=== PATIENT | female | born 1980 | race Caucasian/White ===

== ENCOUNTER → 2019-02-27 09:57 | Outpatient (CLI) | payer OTHER, MEDICAID, SELFPAY ==
--- NOTE | 2019-02-27 | DI.MG.S_ITS ---
BILATERAL DIGITAL SCREENING MAMMOGRAM 3D/2D WITH CAD: 02/27/2019 CLINICAL: Routine screening. Baseline exam. No prior exams were available for comparison. The tissue of both breasts is heterogeneously dense. This may lower the sensitivity of mammography. Current study was also evaluated with a Computer Aided Detection (CAD) system. There are two areas of possible architectural distortion in the right breast posterior depth central to the nipple seen on the craniocaudal view only. This is best seen on RCC tomosynthesis image 27/55. IMPRESSION: INCOMPLETE: NEEDS ADDITIONAL IMAGING EVALUATION The two areas of possible architectural distortion in the right breast posterior depth central to the nipple are indeterminate. Additional views with possible ultrasound are recommended. This exam was interpreted at Station ID: [id number]. NOTE: For mammograms, a report in lay terms will be sent to the patient. Approximately 15% of breast malignancies will not be visualized mammographically. In the management of a palpable breast mass, a negative mammogram must not discourage biopsy of a clinically suspicious lesion. Electronically Signed By: Sly Cope M.D. ecl/:03/01/2019 12:02:00 letter sent: Additional Imaging Needed ACR BI-RADS Category 0: Incomplete 3340F
== END ==
DX: Z12.31 Encounter for screening mammogram for malignant neoplasm of breast (principal)
CPT/HCPCS: 77063; 77067

== ENCOUNTER → 2019-03-24 12:38 | Outpatient (CLI) | payer OTHER, MEDICAID, SELFPAY ==
--- NOTE | 2019-03-24 | DI.MG.S_ITS ---
UNILATERAL RIGHT DIGITAL DIAGNOSTIC MAMMOGRAM 3D/2D WITH ADDITIONAL VIEWS: 03/24/2019 CLINICAL: Additional evaluation requested from prior study. Comparison is made to exam dated: 02/27/2019 mammogram - [facility]. The tissue of right breast is heterogeneously dense. This may lower the sensitivity of mammography. The architectural distortion in the right breast posterior depth central to the nipple seen on the craniocaudal view only is not seen in additional views. No other significant masses or calcifications are seen in the breast. IMPRESSION: The architectural distortion in the right breast seen on the screening mammogram likely respresents superimposed fibroglandular tissue and is benign. There is no mammographic evidence of malignancy. A 1 year screening mammogram is recommended. This exam was interpreted at Station ID: [id number]. NOTE: For mammograms, a report in lay terms will be sent to the patient. Approximately 15% of breast malignancies will not be visualized mammographically. In the management of a palpable breast mass, a negative mammogram must not discourage biopsy of a clinically suspicious lesion. Electronically Signed By: Jacqui kerns/:03/24/2019 13:05:25 letter sent: Normal Exam ACR BI-RADS Category 2: Benign Finding(s) 3342F
== END ==
DX: R92.8 Other abnormal and inconclusive findings on diagnostic imaging of breast (principal)
CPT/HCPCS: 77065; G0279

== ENCOUNTER → 2020-02-25 13:10 | Outpatient (CLI) | payer OTHER, MEDICAID, SELFPAY ==
[2020-02-25 13:42] LABS: Add Manual Diff / Slide Review NO; Basophils Absolute Auto 0 /uL (0-100); Basophils Percent Auto 0.4 % (0-2); Eosinophils Absolute Auto 0 /uL (0-450); Eosinophils Percent Auto 0.4 % (2-4); Hematocrit 37.5 % (36-46); Hemoglobin 12.9 g/dL (12.0-16.0); Lymphocytes Absolute Auto 1800 /uL (1100-4500); Lymphocytes Percent Auto 16.9 % (25-40); Mean Corpuscular HGB Conc 34.4 % (30-36); Mean Corpuscular Hemoglobin 31.5 PG (26-34); Mean Corpuscular Volume 91.4 fL (80-100); Monocytes Absolute Auto 800 /uL (0-900); Monocytes Percent Auto 7.3 % (3-14); Neutrophils Absolute Auto 8100 /uL (1500-7000); Platelet Count 332 X10^3/uL (150-400); Red Blood Cell Count 4.11 X10^6/uL (4.0-5.2); Red Cell Distribution Width 12.6 % (11.6-14.8); White Blood Cell Count 10.8 X10^3/uL (4.5-11.0)
[2020-02-25 13:49] LABS: Appearance Urine UA CLEAR; Bilirubin Urine UA NEGATIVE (NEGATIVE); Color Urine UA YELLOW; Glucose Urine UA NEGATIVE (Negative); Ketones Urine UA NEGATIVE (NEGATIVE); Leukocyte Esterase Urine UA NEGATIVE (NEGATIVE); Nitrite Urine UA NEGATIVE (Negative); Occult Blood Urine UA NEGATIVE (Negative); Protein Urine UA NEGATIVE (Negative); Urobilinogen Urine UA 0.2 E.U./dL (0.2)
[2020-02-25 15:17] LABS: Urine N gonorrhoeae NOT DETECTED
[2020-02-25 16:39] LABS: Urine Chlamydia NOT DETECTED
[2020-02-26 09:10] LABS: RPR Screen Non Reactive (Non Reactive); Varicella IgG Antibody 1372 index (Immune >165)
[2020-02-27 09:11] LABS: Hepatitis B Surface Antigen NEGATIVE s/c (NEGATIVE); Rubella Antibody IgG 73.9 IU/mL (>15)
== END ==
PROVIDERS: Referring Provider Specialist; Visit Provider Specialist
DX: Z34.01 Encounter for supervision of normal first pregnancy, first trimester (principal); Z11.3 Encounter for screening for infections with a predominantly sexual mode of transmission; Z3A.09 9 weeks gestation of pregnancy
CPT/HCPCS: 36415; 80055; 81003; 86787; 86850; 86900; 86901; 87086; 87491; 87591

== ENCOUNTER → 2020-03-24 10:52 | Outpatient (CLI) | payer OTHER, MEDICAID, SELFPAY | PROVIDERS: PCP Nurse Practitioner Family; Referring Provider Specialist; Visit Provider Specialist | DX: O09.521 Supervision of elderly multigravida, first trimester (principal); O09.819 Supervision of pregnancy resulting from assisted reproductive technology, unspecified trimester; Z36.0 Encounter for antenatal screening for chromosomal anomalies | CPT/HCPCS: 36415; 81420 ==

== ENCOUNTER → 2020-04-21 10:41 | Outpatient (CLI) | payer OTHER, MEDICAID, SELFPAY ==
[2020-04-21 13:36] LABS: Free T4, Direct Thyroxine 0.95 ng/dL (0.78-2.19)
[2020-04-21 13:50] LABS: Thyroid Stimulating Hormone 3.64 uIU/mL (0.47-4.68)
[2020-04-25 18:07] LABS: AFP Value 64.6 ng/mL (.); Gestational Age Ultrasound (.); Insulin Dep Diabetes No (.); OSBR Risk 1IN 1802 (.); Results Report (.); Test Results *Screen Negative* (.)
== END ==
PROVIDERS: PCP Nurse Practitioner Family; Referring Provider Specialist; Visit Provider Specialist
DX: O99.280 Endocrine, nutritional and metabolic diseases complicating pregnancy, unspecified trimester (principal); O09.529 Supervision of elderly multigravida, unspecified trimester; E03.9 Hypothyroidism, unspecified
CPT/HCPCS: 36415; 82105; 84439; 84443

== ENCOUNTER → 2020-05-19 07:52 | Outpatient (CLI) | payer OTHER, MEDICAID, SELFPAY ==
--- NOTE | 2020-05-19 07:54 | DI.US.S_ITS ---
PROCEDURE: US OB >= 14 WEEKS FETUS INDICATIONS: ANATOMY OUTSIDE/PRIOR DATING DATA: Last menstrual period (LMP): Given as 01/07/20. LMP-based estimated date of delivery (VJ): By IVF, 10/02/20. First dating scan (date and location): 05/19/20. Estimated date of delivery (VJ) from first dating scan: 09/25/20. TECHNIQUE: Real-time scanning was performed of the fetus, with image documentation and biometric measurements. COMPARISON: [facility], , OB >= 14 WEEKS FETUS, 03/24/2020, 10:19. FINDINGS: General: A single live intrauterine gestation is present. Presentation: Variable. Placenta: Placental position is posterior/fundal, without previa. Amniotic fluid index: 13.2 cm, normal range is 5-24 cm. heart rate: 125 beats per minute. Maternal cervical canal: 4.6 cm long. Normal lower limit is 2.5 cm. biometrics: Biparietal diameter: 5.1 cm equals 21 weeks 3 days Head circumference: 19.4 cm equals 21 weeks 5 days Abdominal circumference: 16.2 cm equals 21 weeks 2 days Femur length: 3.6 cm equals 21 weeks 5 days Estimated gestational age from initial scan: not applicable. Composite gestational age from present scan: 21 weeks 4 days Estimated weight and percentile: 429 g, 90 percentile Measurement variability for biometric dating: +/- 7 days from 14 weeks to 15 weeks 6 days gestation, +/- 10 days from 16 weeks to 21 weeks 6 days gestation, +/- 2 weeks from 22 weeks to 27 weeks 6 days gestation, +/- 3 weeks for 28 weeks gestation or later. weight reference: 4500 g or EFW >90/95% is considered macrosomia or large for gestational age. EFW <10% is small for gestational age. EFW 5% or less is considered intra-uterine growth restriction. Anatomic survey: Neuro: Ventricles are non-dilated at less than 10 mm. Cisterna magna is normal at 3-11 mm. Cerebellum is normal in size and morphology. Nuchal skin fold: Normal at less than 6 mm between 14-21 weeks gestational age. Face: Nose and lips, facial profile are normal. Spine: No evidence for spina bifida. Heart: 4-chambered heart is present, with normal ventricular outflow tracts. Diaphragm: Diaphragm is intact. Stomach: Left-sided stomach is present. Kidneys: No hydronephrosis. Normal is less than 5 mm in 2nd trimester, less than 7 mm in 3rd trimester. Cord: 3-vessel cord has orthotopic insertion. Bladder: Normal in size. Extremities: All 4 extremities identified. IMPRESSION: A single live intrauterine is seen. No anatomic abnormalities are identified. No significant discrepancy is found between the estimated gestational age based on these images and the estimated gestational age based upon the given date of the last menstrual period. Dictated by: Amando Walker M.D. on 05/19/2020 at 8:35 Approved by: Amando Walker M.D. on 05/19/2020 at 8:39
== END ==
PROVIDERS: PCP Nurse Practitioner Family; Referring Provider Specialist; Visit Provider Specialist
DX: Z34.82 Encounter for supervision of other normal pregnancy, second trimester (principal); Z3A.21 21 weeks gestation of pregnancy
CPT/HCPCS: 76811

== ENCOUNTER → 2020-09-06 08:23 | Outpatient (CLI) | payer OTHER, MEDICAID, SELFPAY ==
[2020-09-07 07:54] LABS: Strep Grp B PCR NEG for Grp B Strep
== END ==
PROVIDERS: PCP Obstetrics & Gynecology; Visit Provider Specialist
DX: Z34.83 Encounter for supervision of other normal pregnancy, third trimester (principal); Z3A.36 36 weeks gestation of pregnancy
CPT/HCPCS: 87653

== ENCOUNTER 2020-10-02 11:04 | Outpatient (CLI) | payer OTHER, MEDICAID, SELFPAY ==
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
== END 2020-10-02 11:10 | disposition home or self-care (01) ==
LOC: LABOR 11:52 → OB 10-03 16:50
PROVIDERS: PCP Obstetrics & Gynecology; Referring Provider Specialist; Visit Provider Specialist
DX: O48.0 Post-term pregnancy (principal); O09.513 Supervision of elderly primigravida, third trimester; Z3A.40 40 weeks gestation of pregnancy
CPT/HCPCS: 59025; G0378; G0379

== ENCOUNTER 2020-10-05 14:25 | Outpatient (CLI) | payer OTHER, MEDICAID, SELFPAY | END 2020-10-05 15:00 | disposition home or self-care (01) | LOC: LABOR 15:02 → OB 10-06 08:04 | PROVIDERS: PCP Obstetrics & Gynecology; Referring Provider Specialist; Visit Provider Specialist | DX: O48.0 Post-term pregnancy (principal); O09.513 Supervision of elderly primigravida, third trimester; Z3A.40 40 weeks gestation of pregnancy | CPT/HCPCS: 59025; G0378; G0379 ==

== ENCOUNTER 2020-10-07 11:43 | Observation (INO) | payer OTHER, MEDICAID, SELFPAY ==
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
== END 2020-10-07 13:56 | disposition home or self-care (01) ==
PROVIDERS: Admitting Provider Specialist; PCP Obstetrics & Gynecology; Referring Provider Obstetrics & Gynecology; Visit Provider Specialist
DX: O48.0 Post-term pregnancy (principal); O09.523 Supervision of elderly multigravida, third trimester; Z3A.40 40 weeks gestation of pregnancy
CPT/HCPCS: G0378; G0379

== ENCOUNTER 2020-10-07 22:50 | Inpatient (IN) | payer OTHER, MEDICAID, SELFPAY ==
[2020-10-08 00:10] LABS: Hematocrit 38.7 % (36-46); Hemoglobin 12.8 g/dL (12.0-16.0); Mean Corpuscular HGB Conc 33.1 % (30-36); Mean Corpuscular Hemoglobin 30.5 PG (26-34); Platelet Count 247 X10^3/uL (150-400); Red Blood Cell Count 4.21 X10^6/uL (4.0-5.2); Red Cell Distribution Width 15.6 % (11.6-14.8); White Blood Cell Count 14.1 X10^3/uL (4.5-11.0)
[2020-10-08 00:11] LABS: Add Manual Diff / Slide Review YES
[2020-10-08 00:12] VITALS: BP 128/73
[2020-10-08 00:31] LABS: COVID19 -Nasal RAPID Negative (Negative)
[2020-10-08 01:37] LABS: Anisocytosis 1+; Neutrophils Absolute Manual 11844 /uL (3000-5900); Total Cells Counted 100
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
[2020-10-08] MEDS: LACTATED RINGERS 1,000 ML 100 ML IV (09:45)
[2020-10-08] MEDS: OXYTOCIN PREMIX 30 UNIT/500 ML PLAST..BAG IV (11:34)
--- NOTE | 2020-10-08 16:09 | PM.OBPRVD ---
Labor & Delivery Delivery date: 10/08/20 Intrapartal events: Prolonged Active Phase Cervical ripening method: none Induction method: none Delivery augmentation: pitocin Delivery monitor: external FHT, external uterine and internal uterine Route of delivery: L&D Laceration Description: Vaginal - 2nd Degree Delivery repair: chromic (3 0) Estimated blood loss (mL): 400 Anesthesia type: Epidural Narrative: Patient arrived on Labor and delivery in active labor. She had very slow progress in the 1st stage of labor. She eventually received an epidural catheter for pain control. Pitocin was begun to augment labor. She had a spontaneous vaginal delivery over an intact perineum. The viable female infant was placed on the maternal abdomen. After the cord stopped pulsating the cord was clamped, cut, and cord bloods obtained. The placenta delivered spontaneously, intact, with 3 vessels. There were no cervical or vaginal tears. A second-degree perineal tear was repaired the usual 2 layer fashion with 3 0 chromic suture. Both mother doing well. Baby 1: Infant gender: Female Presentation: vertex position: Right Occiput Anterior Placenta delivery description: Spontaneous cord vessel description: 3 Vessels score (1 min): 8 score (5 min): 9 Plan for aftercare: ROUTINE POST VAGINAL DELIVERY CARE
[2020-10-08] MEDS: IBUPROFEN 600 MG TABLET PO (20:27)
[2020-10-08] MEDS: DERMOPLAST SPRAY 20% 60 ML 1 SPRAY TOP (20:27)
[2020-10-09] MEDS: IBUPROFEN 600 MG TABLET PO ×4 (04:06→22:06)
[2020-10-09 07:37] LABS: Add Manual Diff / Slide Review NO; Basophils Absolute Auto 200 /uL (0-100); Basophils Percent Auto 1.3 % (0-2); Eosinophils Absolute Auto 100 /uL (0-450); Eosinophils Percent Auto 0.6 % (2-4); Hematocrit 31.7 % (36-46); Hemoglobin 10.5 g/dL (12.0-16.0); Lymphocytes Absolute Auto 1100 /uL (1100-4500); Lymphocytes Percent Auto 6.3 % (25-40); Mean Corpuscular HGB Conc 33.2 % (30-36); Mean Corpuscular Hemoglobin 30.8 PG (26-34); Mean Corpuscular Volume 92.8 fL (80-100); Monocytes Absolute Auto 900 /uL (0-900); Monocytes Percent Auto 5.2 % (3-14); Neutrophils Absolute Auto 15500 /uL (1500-7000); Neutrophils Percent Auto 86.6 % (50-75); Platelet Count 204 X10^3/uL (150-400); Red Blood Cell Count 3.41 X10^6/uL (4.0-5.2); Red Cell Distribution Width 15.6 % (11.6-14.8); White Blood Cell Count 17.9 X10^3/uL (4.5-11.0)
[2020-10-09] MEDS: PRENATAL VIT,CALC/IRON/FOLIC 1 TABLET 1 TAB PO (09:55)
[2020-10-09] MEDS: LEVOTHYROXINE 50 MCG TABLET PO (10:31)
[2020-10-09] MEDS: RHO(D) IMMUNE GLOBULIN 1,500 UNIT SYRINGE 1500 UNIT IM (12:19)
--- NOTE | 2020-10-09 14:01 | P.PNOB_ITS ---
Subjective - OB Subjective Patient comments: no complaints [place] baby status: doing well and nursing well [place] feeding status: exclusively breast feeding Date Patient Seen: 10/09/20 Time Patient Seen: 14:02 Interval history: Patient is doing well. Breast-feeding is going well. Pain is minimal. Bleeding is okay. No headaches, scotomata, epigastric pain. Exam Vital Signs (past 8 hours): Blood pressure 113/75, pulse of 87, temperature 99.2? Narrative Exam Narrative: Abdomen is soft, nontender. Uterus is firm, at U, nontender. Mild lochia. Extremities without edema and nontender. Objective Labs Result Diagrams: 10/09/20 06:55 Labs: Laboratory Results - last 24 hr 10/09/20 10/09/20 06:55 06:55 WBC 17.9 H RBC 3.41 L Hgb 10.5 L Hct 31.7 L MCV 92.8 MCH 30.8 MCHC 33.2 RDW 15.6 H Plt Count 204 Neut % (Auto) 86.6 H Lymph % (Auto) 6.3 L [place] % (Auto) 5.2 Eos % (Auto) 0.6 L Baso % (Auto) 1.3 Neut # (Auto) 55239 H Lymph # (Auto) 1100 [place] # (Auto) 900 Eos # (Auto) 100 Baso # (Auto) 200 H Maternal Bleed Negative Assessment & Plan Assessment and Plan (1) Vaginal delivery: Status: Acute Plan day: 1 plan OB: routine care Time Spent With Patient Time: Total time spent is greater than 50% in coordination of care (as documented) at patient's floor/unit and/or counseling patient: Time with patient: less than 15 minutes
[2020-10-10] MEDS: LANOLIN OINT 7 GM 1 APPLIC TOP (08:00)
[2020-10-10] MEDS: PRENATAL VIT,CALC/IRON/FOLIC 1 TABLET 1 TAB PO (08:00)
[2020-10-10] MEDS: IBUPROFEN 600 MG TABLET PO (08:00)
--- NOTE | 2020-10-10 10:53 | P.DS_ITS ---
Discharge Providers Provider Date of admission: 10/07/20 22:50 Discharge Date: 10/10/20 Primary care physician: Kasie Coreas M.D. Consults: 10/07/20 23:27 Consult to Anesthesiology Urgent Comment: Consulting Provider: Anesthesiologist Reason for consultation: Epidural Has provider been notified: No 10/09/20 16:07 Consult to Expert Witness Routine Comment: Discharge provider: Kasie Coreas MD Summary Hospital Course Date Patient Seen: 10/10/20 Time Patient Seen: 10:54 Procedures: Pitocin augmentation of labor, epidural catheter, spontaneous vaginal delivery, repair of second-degree tear Hospital Course: Patient arrived in Labor and delivery in active labor. She had slow progress and so to eventually was started on Pitocin to augment labor. She received epidural catheter. She had a spontaneous vaginal delivery with repair of a second-degree tear. Patient is urinating and ambulating. She is passing gas. Pain is mild. She is breast-feeding without difficulty. Peripartum Data Delivery Method: Natural Vaginal Laceration Description: Perineal - 2nd Degree Procedures: Pitocin augmentation of labor, epidural catheter, spontaneous vaginal delivery, repair of second-degree tear complications: none 1: Gender: Female Disposition of : home Discharge Diagnosis (1) Vaginal delivery: Status: Acute Status at Discharge Cognitive/behavioral status at discharge: oriented Functional status at discharge: independent ambulation Overall status at discharge: patient is progressing back to baseline Time Spent with Patient Time attestation: Total time spent providing and/or coordinating discharge services: Time spent: Less than 30 minutes Objective Labs Result Diagrams: 10/09/20 06:55 Exam Vital Signs (past 8 hours): Blood pressure 116/80, pulse of 80, temperature 99.2? Narrative Exam Narrative: Abdomen is soft, nontender. Uterus is firm, at U, nontender. Mild lochia. Repair is intact. Extremities without edema and nontender. Patient received RhoGAM, she is rubella immune and received Tdap in the 3rd trim geovanny. Discharge Plan Discharge Plan Patient Disposition: Home Discharge orders & Medications Prescriptions: Continued levothyroxine [Euthyrox] 50 mcg tablet 50 mcg PO DAILY Qty: 40 RF: 4 prenat.vits,carlos alberto,[id number] Tablet 1 tab PO DAILY RF: 0 Follow up/Referrals: Madie Moran MD [Primary Care Provider] - Kasie Coreas MD [Physician] - 11/22/20 Diet/Activity/Treatments Diet: Regular Activity: Nothing in vagina for 6 weeks Skin/Wound/Dressing Care Report to your healthcare provider any signs of infection, such as:: chills, fever and increased pain Visit Report/Discharge Packet Stand Alone Forms: Discharge: Care Discharge Data Primary Care Provider: Madie Moran
== END 2020-10-10 13:22 | disposition home or self-care (01) | DRG 560 ==
PROVIDERS: Admitting Provider Specialist; PCP Obstetrics & Gynecology; Referring Provider Specialist; Visit Provider Specialist
DX: O48.0 Post-term pregnancy (principal); O63.0 Prolonged first stage (of labor); O70.1 Second degree perineal laceration during delivery; Z3A.40 40 weeks gestation of pregnancy; Z37.0 Single live birth; Z11.59 Encounter for screening for other viral diseases
CPT/HCPCS: 01967; 36415; 59050; 59409; 85025; 85461; 86850; 86870; 86900; 86901; 87635; G0378; G0379; J2590; J2790

== ENCOUNTER → 2024-11-15 13:07 | Outpatient (CLI) | payer SELFPAY ==
[2024-11-15 13:57] LABS: Urine Drug scr, USCG NIDA See Separate Report
== END ==
PROVIDERS: PCP Family Medicine
DX: Z02.83 Encounter for blood-alcohol and blood-drug test (principal)
CPT/HCPCS: 81099